=== PATIENT | male | born 1955 | race Caucasian/White ===

== ENCOUNTER 2017-02-07 08:11 | Day surgery (SDC) | payer BC ==
[2017-02-04 10:11] VITALS: BMI 27.3
[2017-02-07] MEDS ORDERED: PROPOFOL 20 ML ONE ×2 (08:17)
[2017-02-07] MEDS ORDERED: LIDOCAINE HCL/PF 2% SDV 5ML VIAL ONE (08:18)
[2017-02-07 09:48] VITALS: TEMP 98.5
[2017-02-07 10:03] VITALS: BP 117/59; PULSE 58
== END 2017-02-07 10:10 | disposition home or self-care (01) ==
LOC: FASU-ENDO 08:11
PROVIDERS: ATTEND Internal Medicine Gastroenterology
PROC: 0DJD8ZZ Inspection of Lower Intestinal Tract, Via Natural or Artificial Opening Endoscopic (ICD-10-PCS; principal; 2017-02-07 09:20)
DX: Z12.11 Encounter for screening for malignant neoplasm of colon (principal)